=== PATIENT | female | born 1960 | race Caucasian/White ===

== ENCOUNTER 2020-07-17 05:07 | Emergency (ER) | payer MEDICAID, MEDICARE, OTHER ==
[~2020-07-17] VITALS: Ht 170.2 cm; Wt 71.1 kg
[2020-07-17] MEDS ORDERED: METOCLOPRAMIDE 5 MG/ML, 2ML ONE (05:35)
[2020-07-17] MEDS ORDERED: DIPHENHYDRAMINE 50 MG/ML, 1ML ONE (05:35)
--- NOTE | 2020-07-17 05:51 | NUR ---
PT C/O MIGRAINE X 3 DAYS. STATES UNABLE TO KEEP HER DILAUDID DOWN. PIV ESTB. MEDS PER MAY. WILL CTM.
[2020-07-17] MEDS ORDERED: DIPHENHYDRAMINE 50 MG/ML, 1ML IVPush ONE (06:00)
[2020-07-17] MEDS ORDERED: SODIUM CHLORIDE 0.9% 1,000ML IVBOLUS ONE (06:00)
[2020-07-17] MEDS ORDERED: METOCLOPRAMIDE 5 MG/ML, 2ML IVPush ONE (06:00)
--- NOTE | 2020-07-17 06:28 | NUR ---
PT AMBUALTORY TO RESTROOM C STEADY GAIT. DENIES ANY RELIEF FROM MIGRAINE. MD AWARE, WILL MONITOR FOR ORDERS.
[2020-07-17] MEDS ORDERED: DEXAMETHASONE 4 MG/ML, 1ML IVPush ONE (06:30)
[2020-07-17] MEDS ORDERED: KETOROLAC 30 MG/1 ML IVPush ONE (06:30)
--- NOTE | 2020-07-17 07:00 | NUR ---
assumed care of pt. report from Atiya VALDEZ pt here for recurrent migraine. per report pt states that she can only take dilaudid for her [place] pain. pt has been medicated. attempted to enter room to discuss further medication administration with pt but pt is sleeping. meds held at this time. Dr. Gilmore aware
--- NOTE | 2020-07-17 07:30 | NUR ---
pt continues sleeping
--- NOTE | 2020-07-17 08:00 | NUR ---
no changes. pt sleeping with lights dimmed
--- NOTE | 2020-07-17 08:30 | NUR ---
attyempted to enter room to assess pt, pt not in room. pt has pulled out her IV which is laying on the gurney with cath intact. pt has been incontinent on gurney. attempting to locate pt in department
--- NOTE | 2020-07-17 08:45 | NUR ---
pt located in . pt is A&O x4. ambulatory without assist. pt given clean clothing from [facility]. towels and washcloths given pt bed cleaned. fresh linnens applied. pt ambulated to room from without difficulty pt alexandra sahu sitting up in position of comfort
--- NOTE | 2020-07-17 08:58 | NUR ---
PO fluids given per request. chartup for MD recheck. Dr Gilmore aware of occurrence. pt updated on POC
--- NOTE | 2020-07-17 09:20 | NUR ---
Dr Gilmore at bedside for recheck
[2020-07-17 09:46] VITALS: BP 141/79
== END 2020-07-17 09:50 | disposition home or self-care (01) ==
LOC: ED 06:23
DX: G43.009 Migraine without aura, not intractable, without status migrainosus (principal); Z88.8 Allergy status to other drugs, medicaments and biological substances
CPT/HCPCS: 96361; 96374; 96375; 99285; J1200; J2765; J7030